=== PATIENT | male | born 1970 | race Caucasian/White ===

== ENCOUNTER 2022-07-18 07:33 | Day surgery (SDC) | payer BC ==
[2022-07-15 18:11] VITALS: BMI 37.3
[2022-07-18] MEDS ORDERED: PROPOFOL 40 ML ONE (07:46)
[2022-07-18 07:53] VITALS: RESP 20
[2022-07-18 08:49] VITALS: TEMP 98
[2022-07-18 09:14] VITALS: BP 103/66; PULSE 72
== END 2022-07-18 09:12 | disposition home or self-care (01) ==
LOC: FASU-ENDO 07:33
PROVIDERS: ATTEND Internal Medicine Gastroenterology
PROC: 0DBH8ZX Excision of Cecum, Via Natural or Artificial Opening Endoscopic, Diagnostic (ICD-10-PCS; principal; 2022-07-18 08:14)
DX: Z12.11 Encounter for screening for malignant neoplasm of colon (principal); D12.0 Benign neoplasm of cecum; K57.30 Diverticulosis of large intestine without perforation or abscess without bleeding
CPT/HCPCS: 88305-TC